=== PATIENT | female | born 1940 | race Caucasian/White ===

== ENCOUNTER 2017-11-20 16:53 | Emergency (ER) | payer OTHER, MEDICARE ==
[~2017-11-20] VITALS: Ht 168.9 cm; Wt 59.9 kg
[2017-11-20 18:37] LABS: ABSOLUTE BASOPHIL COUNT 0 /CUMM (0.0-0.2); ABSOLUTE EOSINOPHIL COUNT 0.1 /CUMM (0.0-0.7); ABSOLUTE GRANULOCYTE CT 3.9 /CUMM (1.4-6.5); ABSOLUTE LYMPH COUNT 1.3 /CUMM (1.2-3.4); ABSOLUTE MONOCYTE COUNT 0.5 /CUMM (0.10-0.60); BASOPHIL % 0 % (0.0-2.0); EOSINOPHIL % 1.4 % (0-5); GRANULOCYTE % 67.2 % (42.2-75.2); HEMATOCRIT 34.2 % (37-47); MEAN CORPUSCULAR HGB 32.9 PG (27.0-31.0); MEAN CORPUSCULAR HGB CONC 34.7 G/DL (33.0-37.0); MEAN CORPUSCULAR VOLUME 94.9 FL (81.0-99.0); MEAN PLATELET VOLUME 8.4 FL (7.4-10.4); PLATELET COUNT 238 /CUMM (130-400); RBC DISTRIBUTION WIDTH 13.3 % (11.5-14.5); WHITE BLOOD CELL COUNT 5.7 /CUMM (4.8-10.8)
--- NOTE | 2017-11-20 20:15 | ED GENERAL ADULT ---
History of Present Illness General Chief Complaint: General Adult Stated Complaint: "DIZZY LIGHT HEADED, DIHAREA, BLURRED VISION" Source: patient, family Exam Limitations: no limitations Vital Signs & Intake/Output Vital Signs & Intake/Output Vital Signs Date Time Temp Pulse Resp B/P B/P Pulse O2 O2 Flow FiO2 Mean Ox Delivery Rate 11/207 98.2 62 18 101/59 98 Room Air 11/20 1740 98.2 79 20 131/74 94 Room Air Allergies Coded Allergies: MDX - Iodine (IODINE) (Intermediate, RASH 11/20/17) MDX - Seafood (SEAFOOD) (Intermediate, RASH 11/20/17) MDX - Fragrance (Fragrance) (Mild, UNKNOWN REACTION TO PERFUME 11/20/17) MDX - Estrogen Class (Estrogen) (UNKNOWN REACTION TO TOPICAL ESTROGEN 11/20/17) MDX - Latex (UNKNOWN 11/20/17) MDX - Montelukast (From Singulair) (UNKNOWN 11/20/17) Reconcile Medications Diphenoxylate HCl/Atropine (Lomotil 2.5-0.025 MG Tablet) 2.5 MG-0.025 MG TABLET 1 TAB PO 4 TIMES/DAY DIARRHEA TWENTY...[id number] Meclizine HCl 25 MG TABLET 1 TAB PO TIDPRN PRN VERTIGO Sulfamethoxazole/Trimethoprim (Bactrim Ds Tablet) 800 MG-160 MG TABLET 1 TAB PO BID INFECION Triage Note: TRIAGE: PT TO ER WITH FAMILY C/C DIZZY, LIGHTHEADED, DIARRHEA AND BLURRED VISION. ONSET FEW WEEKS AGO WITH FEELING UNSTEADY ON HER FEET. STATES BLURRED VISION IS BETTER TODAY THEN YESTERDAY. SAW MD REGARDING SAME AND STATES THEY ADJUSTED HER THYROID MEDICINE ABOUT A MONTH AGO. STATES SYMPTOMS GOT BETTER INITIALLY AND THEN WORSE AGAIN. HAS NOT BEEN BACK TO MD SINCE ADJUSTING MEDICATION, NEXT APPT IS IN DECEMBER. DENIES VOMITING. REPORTS LAST DIARRHEA X 1 YESTERDAY. LAST NORMAL BM COUPLE WEEKS AGO. DENIES URINARY S/S. REPORTS GOOD FLUID INTAKE. Triage Nurses Notes Reviewed? yes Onset: Gradual Duration: week(s):, waxing and waning Injury Environment: home Severity: mild Associated Symptoms: diarrhea, dizziness HPI: 76 yo woman presents with 2 weeks of dizziness and 2-3 episodes of diarrhea. She notes, "When I walk down the lara, I feel dizzy.. like I'm moving." She notes no nausea, vomiting, fever, chills, dysuria, chest pain, shortness of breath. She is otherwise well. Past History Travel History Traveled to [place] past 21 day No Medical History Any Pertinent Medical History? 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 No Review of Systems Review of Systems Constitutional: Denies: see HPI. Physical Exam Physical Exam General Appearance: no apparent distress Comments: Review of Systems - except as otherwise noted in HPI Review of Systems Constitutional:no symptoms. EENTM:no symptoms. Respiratory:no symptoms. Cardiovascular:no symptoms. GI:no symptoms. Genitourinary:no symptoms. Musculoskeletal:no symptoms. Skin:no symptoms. Neurological/Psychological:no symptoms. Hematologic/Endocrine:no symptoms. Immunologic/Allergic:no symptoms. All Other Systems: Reviewed and Negative Physical Exam Physical Exam General Appearance: well developed/nourished, no apparent distress Head: atraumatic, normal appearance Eyes: Bilateral: normal appearance. Ears, Nose, Throat: normal pharynx, normal ENT inspection except for dry mucosal membranes Neck: normal inspection, supple, full range of motion Respiratory: normal breath sounds, chest non-tender, no respiratory distress, quiet respiration, lungs clear Cardiovascular: regular rate/rhythm Gastrointestinal: normal bowel sounds, soft, non-tender, no organomegaly Back: normal inspection, normal range of motion Extremities: normal inspection, normal capillary refill, normal range of motion, no edema Neurologic/Psych: no motor/sensory deficits, awake, alert, oriented x 3, vertigo elicited with modified madeline-hallpike maneuver Skin: intact, normal color, warm/dry Core Measures ACS in differential dx? No CVA/TIA Diagnosis: No Sepsis Present: No Sepsis Focused Exam Completed? No Progress Differential Diagnoses I considered the following diagnoses in my evaluation of the patient: vertigo vs dehydration vs colitis vs infectious gastro vs other. Plan of Care: Orders Procedure Date/time Status Add-on Test (ER Only) 11/20 1953 Active URINALYSIS 11/20 1904 Complete THYROXINE 11/20 1818 Complete THYROID STIMULATING HORMONE 11/20 1749 Complete TROPONIN LEVEL 11/20 1749 Complete LIPASE 11/20 1749 Complete COMPREHENSIVE METABOLIC PANEL 11/20 1749 Complete CBC WITHOUT DIFFERENTIAL 11/20 1749 Complete EKG 11/20 1749 Active Current Medications Sig/Jacoby Start time Last Medication Dose Stop Time Status Admin Trimethoprim/ 1 TAB ONCE ONE 11/20 2329 UNVr Sulfamethoxazole 11/20 233 (Bactrim DS) Laboratory Tests 11/20/172222: Urine Color YEL, Urine Clarity CLEAR, Urine pH 6.5, Ur Specific Rincon 1.010, Urine Protein NEG, Urine Ketones NEG, Urine Nitrite POS H, Urine Bilirubin NEG, Urine Urobilinogen 0.2, Ur Leukocyte Esterase LARGE H, Ur Microscopic SEDIMENT EXAMINED, Urine RBC RARE, Urine WBC 10-15 H, Ur Epithelial Cells FEW, Urine Bacteria PACKD H, Urine Hemoglobin TRACE-INTACT, Urine Glucose NEG 11/20/171818: Anion Gap 10, Estimated GFR 48 L, BUN/Creatinine Ratio 11.8, Glucose 106 H, Calcium 9.4, Total Bilirubin 1.7 H, AST 29, ALT 28, Alkaline Phosphatase 80, Troponin I < 0.01, Total Protein 7.1, Albumin 4.1, Globulin 3.0, Albumin/ Globulin Ratio 1.4, Lipase 72, TSH 25.500 H, Thyroxine (T4) 8.6, CBC w Diff NO MAN DIFF REQ, RBC 3.60 L, MCV 94.9, MCH 32.9 H, MCHC 34.7, RDW 13.3, MPV 8.4, Gran % 67.2, Lymphocytes % 22.9, Monocytes % 8.5, Eosinophils % 1.4, Basophils % 0, Absolute Granulocytes 3.9, Absolute Lymphocytes 1.3, Absolute Monocytes 0.5, Absolute Eosinophils 0.1, Absolute Basophils 0 Diagnostic Imaging: Viewed by Me: CT Scan. Discussed w/RAD: CT Scan. Radiology Impression: PATIENT: PORTER ORTEGA PRESENT AGE: 76 PATIENT ACCOUNT NO: [id number] : 39 LOCATION: ER ORDERING PHYSICIAN: Theodore Bonilla MD SERVICE DATE: 11/20/17 EXAM TYPE: CAT - CT HEAD WO IV CONTRAST EXAMINATION: CT HEAD WITHOUT CONTRAST CLINICAL INFORMATION: Dizziness COMPARISON: None TECHNIQUE: Contiguous axial imaging was performed from the skull base to vertex without intravenous administration of contrast. DLP: 536 mGy-cm FINDINGS: There is no evidence of acute intracranial hemorrhage or territorial infarction. No abnormal mass effect or midline shift is seen. Fraire to white matter differentiation is well preserved. No extra-axial fluid collections are identified. The ventricles are normal in size. There is minimal low-attenuation within the periventricular and subcortical white matter. Bilateral basal ganglia calcifications are noted. The osseous structures and soft tissues are normal. The mastoid air cells and visualized portions of the paranasal sinuses are well aerated. IMPRESSION: No acute intracranial findings. Minimal chronic small vessel change.. DICTATED BY: Ursula Tavarez MD DATE/TIME DICTATED:11/20/172121 CLINICAL SPECIALIST:TAMIR DATE/TIME TRANSCRIBED:11/20/172121 CONFIDENTIAL, DO NOT COPY WITHOUT APPROPRIATE AUTHORIZATION. <Electronically signed in Other Vendor System> SIGNED BY: Ursula Tavarez MD 11/20/172133, PATIENT: PORTER ORTEGA PRESENT AGE: 76 PATIENT ACCOUNT NO: [id number] : 39 LOCATION: [facility] ORDERING PHYSICIAN: Theodore Bonilla MD SERVICE DATE: EXAM TYPE: CAT - CT ABD & PELVIS W/O IV CONTRAS EXAMINATION: CT ABDOMEN AND PELVIS WITHOUT CONTRAST CLINICAL INFORMATION: Severe diarrhea COMPARISON: None TECHNIQUE: Multidetector volumetric imaging was performed from the superior aspect of the liver through the pubic symphysis. Sagittal and coronal reformatted images were obtained on the technologist's workstation. DLP: 233.82 mGy-cm FINDINGS: LUNG BASES: The visualized lung bases are unremarkable. A Bochdalek hernia is present with herniation of a small portion of the liver through the right hemidiaphragm. LIVER, GALLBLADDER, AND BILIARY TREE: The liver is otherwise normal in size, shape, and attenuation. No focal hepatic lesion or biliary ductal dilatation is present. High density material is seen layering in the gallbladder which could represent gallstones. PANCREAS: Unremarkable. SPLEEN : Unremarkable. ADRENAL GLANDS: Unremarkable. KIDNEYS AND URETERS: The kidneys are normal in size, shape, and attenuation. They are nonrotated with the renal pelvis sees facing anteriorly. No hydronephrosis, hydroureter, or calculi seen. No perinephric stranding. BLADDER: Unremarkable. GASTROINTESTINAL TRACT: The small and large bowel are unremarkable. The appendix is not seen but there is no evidence of appendicitis. ABDOMINAL WALL: No significant hernia is appreciated. LYMPH NODES: Normal. VASCULAR: Aortic calcification is present. PELVIC VISCERA: Pessary is present. OSSEOUS STRUCTURES: Exaggerated lumbar kyphosis is present with associated degenerative changes in the spine and grade 1 spondylolisthesis with forward slippage of L4 upon L5 and L5 upon S1. There is a compression fracture of T12 with anterior wedging. A right total hip prosthesis is present. Old healed fractures of the pubic rami are present. IMPRESSION: 1. High density material layering in the gallbladder which could represent gallstones. 2. Bochdalek hernia with herniation of a small portion of the liver through the hemidiaphragm on the right. 3. Degenerative changes in the spine. 4. A pessary is place in the pelvis. 5. A definite cause for the patient's diarrhea has not been found. DICTATED BY: Michael Capps MD DATE/TIME DICTATED:11/20/172116 CLINICAL SPECIALIST:TAMIR DATE/TIME TRANSCRIBED:11/20/172116 CONFIDENTIAL, DO NOT COPY WITHOUT APPROPRIATE AUTHORIZATION. <Electronically signed in Other Vendor System> SIGNED BY: Michael Capps MD 11/20/17 3479 Initial ED EKG: sinus inc rbbb and lafb, no acute changes Departure Departure Disposition: HOME OR SELF CARE Condition: Stable Clinical Impression Primary Impression: Diarrhea Secondary Impressions: Hypothyroidism, Urinary tract infection, Vertigo Referrals: Magdalena ALBA,Partha Sosa (PCP/Family) Departure Forms: Customer Survey General Discharge Information Prescriptions: Current Visit Scripts Meclizine HCl 1 TAB PO TIDPRN PRN VERTIGO #30 TAB Diphenoxylate HCl/Atropine (Lomotil 2.5-0.025 MG Tablet) 1 TAB PO 4 TIMES/DAY #20 TAB TWENTY...[id number] Sulfamethoxazole/Trimethoprim (Bactrim Ds Tablet) 1 TAB PO BID #14 TAB Comments 11/20/17, 23:30... discussed at length with family and patient... she is feeling better after supportive medications... she feels comfortable going home... slightly elevated tsh noted, normal t4... will continue her synthroid at present dose, defer to pmd for management... wrote rx for supportive meds. Critical Care Note Critical Care Note Critical Care Time: non-applicable
--- NOTE | 2017-11-20 21:34 | CT SCAN REPORT ---
EXAMINATION: CT HEAD WITHOUT CONTRAST CLINICAL INFORMATION: Dizziness COMPARISON: None TECHNIQUE: Contiguous axial imaging was performed from the skull base to vertex without intravenous administration of contrast. DLP: 536 mGy-cm FINDINGS: There is no evidence of acute intracranial hemorrhage or territorial infarction. No abnormal mass effect or midline shift is seen. Fraire to white matter differentiation is well preserved. No extra-axial fluid collections are identified. The ventricles are normal in size. There is minimal low-attenuation within the periventricular and subcortical white matter. Bilateral basal ganglia calcifications are noted. The osseous structures and soft tissues are normal. The mastoid air cells and visualized portions of the paranasal sinuses are well aerated. IMPRESSION: No acute intracranial findings. Minimal chronic small vessel change..
--- NOTE | 2017-11-20 22:08 | CT SCAN REPORT ---
EXAMINATION: CT ABDOMEN AND PELVIS WITHOUT CONTRAST CLINICAL INFORMATION: Severe diarrhea COMPARISON: None TECHNIQUE: Multidetector volumetric imaging was performed from the superior aspect of the liver through the pubic symphysis. Sagittal and coronal reformatted images were obtained on the technologist's workstation. DLP: 233.82 mGy-cm FINDINGS: LUNG BASES: The visualized lung bases are unremarkable. A Bochdalek hernia is present with herniation of a small portion of the liver through the right hemidiaphragm. LIVER, GALLBLADDER, AND BILIARY TREE: The liver is otherwise normal in size, shape, and attenuation. No focal hepatic lesion or biliary ductal dilatation is present. High density material is seen layering in the gallbladder which could represent gallstones. PANCREAS: Unremarkable. SPLEEN: Unremarkable. ADRENAL GLANDS: Unremarkable. KIDNEYS AND URETERS: The kidneys are normal in size, shape, and attenuation. They are nonrotated with the renal pelvis sees facing anteriorly. No hydronephrosis, hydroureter, or calculi seen. No perinephric stranding. BLADDER: Unremarkable. GASTROINTESTINAL TRACT: The small and large bowel are unremarkable. The appendix is not seen but there is no evidence of appendicitis. ABDOMINAL WALL: No significant hernia is appreciated. LYMPH NODES: Normal. VASCULAR: Aortic calcification is present. PELVIC VISCERA: Pessary is present. OSSEOUS STRUCTURES: Exaggerated lumbar kyphosis is present with associated degenerative changes in the spine and grade 1 spondylolisthesis with forward slippage of L4 upon L5 and L5 upon S1. There is a compression fracture of T12 with anterior wedging. A right total hip prosthesis is present. Old healed fractures of the pubic rami are present. IMPRESSION: 1. High density material layering in the gallbladder which could represent gallstones. 2. Bochdalek hernia with herniation of a small portion of the liver through the hemidiaphragm on the right. 3. Degenerative changes in the spine. 4. A pessary is place in the pelvis. 5. A definite cause for the patient's diarrhea has not been found.
[2017-11-20] MEDS ORDERED: LOMOTIL 2.5-0.1 EACH PO (23:12)
[2017-11-20] MEDS ORDERED: MECLIZINE HCL25 MG PO (23:12)
[2017-11-20] MEDS ORDERED: BACTRIM DS TAB1 EACH PO (23:28)
[2017-11-20 23:32] VITALS: BP 103/62
== END 2017-11-20 23:57 ==
LOC: ERH 16:53
PROVIDERS: Physician Assistant
DX: N39.0 Urinary tract infection, site not specified (principal); E03.9 Hypothyroidism, unspecified; R42 Dizziness and giddiness; R19.7 Diarrhea, unspecified
CPT/HCPCS: 74176; 81001; 93005; 93010; 96361; 96374; J2405

== ENCOUNTER 2017-12-08 13:42 | Observation (INO) | payer OTHER, MEDICARE ==
[~2017-12-08] VITALS: Ht 167.6 cm; Wt 57.6 kg
[~2017-12-08 13:42] MED LIST: BACTRIM DS TAB1 EACH PO; LEVOTHYROXINE88 MCG PO; LOMOTIL 2.5-0.1 EACH PO; MACRODANTIN100 M1 PO; MECLIZINE HCL25 MG PO; ZOCOR40 M1 PO
--- NOTE | 2017-12-08 14:12 | ED AMS/SEIZURE/WEAK/DIZZY ---
History of Present Illness General Chief Complaint: Syncope and Near-Syncope Stated Complaint: DIZZY/HEADACHE Source: patient, family, old records Exam Limitations: no limitations Vital Signs & Intake/Output Vital Signs & Intake/Output Vital Signs Date Time Temp Pulse Resp B/P B/P Pulse O2 O2 Flow FiO2 Mean Ox Delivery Rate 12/08 1432 Room Air 12/08 1403 98.8 69 20 119/71 97 Room Air Allergies Coded Allergies: iodine (Intermediate, RASH 11/25/17) Estrogens (UNKNOWN 11/25/17) latex (UNKNOWN 11/25/17) montelukast (From SINGULAIR) (UNKNOWN 11/25/17) Uncoded Allergies: SEAFOOD (Intermediate, RASH 11/25/17) FRAGRANCE (Mild, UNKNOWN 11/25/17) Reconcile Medications Levothyroxine Sodium 88 MCG TABLET 1 TAB PO DAILY AC THYROID .. Losartan Potassium (Cozaar) 25 MG TABLET 1 TAB PO DAILY HEART (Reported) . Paroxetine HCl (Paxil) 10 MG TABLET 1 TAB PO DAILY MENTAL HEALTH . Simvastatin (Zocor*) 40 MG TABLET 1 TAB PO DAILY CHOLESTEROL . Triage Note: PT SENT TO ED BY MD [facility]IN[facility] FOR HEAD CT. PT REPORTS SHE HAS BEEN FEELING UNWELL X1 MONTH, WAS SCHEDULED FOR OUTPT CT IN 4 DAYS. +DIZZY, "KEEP FEELING LIKE I'M GOING TO FAINT." DENIES FEVERS, DENIES CP, DENIES SOB. Triage Nurses Notes Reviewed? yes HPI: Patient presents for evaluation of dizziness. Patient states "I'm so dizzy, I can't walk straight. The patient also comments that "the ground isn't steady". She has the feeling that "my head is underwater". Symptoms have been present for about 3 weeks and then to wax and wane in intensity. Overall patient feels that her dizziness is getting worse. She felt like she was going to faint today. She saw her primary care physician in his office today and was referred to the emergency department for a CAT scan. Patient has suffered diarrhea over the past few weeks but that seems to have resolved over the past 48 hours. She denies vertigo, chest pain, dyspnea, abdominal pain, dysuria, fever or cold symptoms. Past History Travel History Traveled to [place] past 21 day No Medical History Any Pertinent Medical History? see below for history Neurological: NONE EENT: NONE Cardiovascular: hypertension, hyperlipidemia, RAPID HR AT TIMES Respiratory: NONE Gastrointestinal: hiatal hernia Hepatic: NONE Renal: NONE Musculoskeletal: osteoarthritis, osteoporosis Psychiatric: NONE Endocrine: hypothyroidism, OVER-ACTIVE THYROID Blood Disorders: NONE Cancer(s): NONE LSW/Reproductive: NONE History of MRSA: No History of VRE: No History of CDIFF: No Surgical History Surgical History: non-contributory Psychosocial History Who do you live with Spouse Services at Home None What is your primary language [place] Tobacco Use: Never used Family History Hx Contributory? No Review of Systems Review of Systems Constitutional: Reports: no symptoms. EENTM: Reports: no symptoms. Respiratory: Reports: no symptoms. Cardiovascular: Reports: no symptoms. GI: Reports: no symptoms. Genitourinary: Reports: no symptoms. Musculoskeletal: Reports: no symptoms. Skin: Reports: no symptoms. Neurological/Psychological: Reports: see HPI. Hematologic/Endocrine: Reports: no symptoms. Immunologic/Allergic: Reports: no symptoms. All Other Systems: Reviewed and Negative Physical Exam Physical Exam General Appearance: See below Comments: Gen.: Well-nourished, well-developed, no acute respiratory distress. Head: Normocephalic, atraumatic. Eyes: Normal inspection bilaterally, PERRLA, EOMI, no nystagmus Ears: Normal inspection bilaterally Nose: Normal inspection Throat/mouth : Moist mucosa Neck: Supple, full range of motion, no goiter, equal carotid pulses, no carotid bruits Heart: Regular rate and rhythm, no murmurs rubs or gallops Lungs: Clear to auscultation bilaterally with normal air entry Chest: Nontender Back: Normal range of motion Abdomen: Soft, nontender, nondistended, normal bowel sounds Extremities: Normal range of motion grossly, equal radial pulses, no cyanosis clubbing or edema Neurologic: Cranial nerves 2 through 12 intact, speech is clear, no dysmetria Skin: warm and dry Psychiatric: Calm, cooperative, no apparent delusions or hallucinations Core Measures ACS in differential dx? No CVA/TIA Diagnosis No Sepsis Present: No Sepsis Focused Exam Completed? No Progress Differential Diagnosis: anemia, dehydration, electrolyte abnormality, CVA Plan of Care: Orders Procedure Date/time Status TSH REFLEX 12/09 0600 Active Saline Lock 12/08 1411 Active MISTAKE 12/08 141 Active Telemetry/Coil Rewind Machine Operator 12/08 141 Active TROPONIN LEVEL 12/08 1411 Complete COMPREHENSIVE METABOLIC PANEL 12/08 1411 Complete CBC WITHOUT DIFFERENTIAL 12/08 1411 Complete EKG 12/08 1344 Active Current Medications Sig/Jacoby Start time Last Medication Dose Stop Time Status Admin Sodium Chloride 1,000 ML ONCE ONE 12/08 1500 AC 12/08 (Normal Saline 0.9%) 12/089 1535 Laboratory Tests 12/08/17 1418: Anion Gap 6, Estimated GFR 54 L, BUN/Creatinine Ratio 11.0, Glucose 90, Calcium 8.5, Total Bilirubin 1.2, AST 26, ALT 31, Alkaline Phosphatase 78, Troponin I < 0.01, Total Protein 6.4, Albumin 3.6, Globulin 2.8, Albumin/Globulin Ratio 1.3, CBC w Diff NO MAN DIFF REQ, RBC 3.40 L, MCV 95.5, MCH 32.3 H, MCHC 33.9, RDW 13.6, MPV 7.3 L, Gran % 71.9, Lymphocytes % 17.8 L, Monocytes % 8.6, Eosinophils % 1.1, Basophils % 0.6, Absolute Granulocytes 3.2, Absolute Lymphocytes 0.8 L, Absolute Monocytes 0.4, Absolute Eosinophils 0, Absolute Basophils 0 Diagnostic Imaging: Discussed w/RAD: CT Scan. Radiology Impression: PATIENT: PORTER ORTEGA PRESENT AGE: 76 PATIENT ACCOUNT NO: [id number] : 39 LOCATION: [facility] ORDERING PHYSICIAN: Manpreet Tesfaye MD SERVICE DATE: 12/08/17-1410 EXAM TYPE : CAT - CT HEAD WO IV CONTRAST EXAMINATION: CT HEAD WITHOUT CONTRAST CLINICAL INFORMATION: Dizziness COMPARISON: 11/20/2017 TECHNIQUE: Contiguous axial imaging was performed from the skull base to vertex without intravenous administration of contrast. DLP: 590.89 mGy-cm FINDINGS: There is no evidence of acute intracranial hemorrhage or territorial infarction. No abnormal mass effect or midline shift is seen. Fraire to white matter differentiation is well preserved. Scattered periventricular white matter hypodensities, a nonspecific finding but most commonly on the basis of chronic small vessel ischemic disease. No extra-axial fluid collections are identified. The ventricles are normal in size. The osseous structures and soft tissues are normal. The mastoid air cells and visualized portions of the paranasal sinuses are well aerated. IMPRESSION: No acute intracranial pathology. Chronic small vessel ischemic disease, unchanged. DICTATED BY: Lisa Yu MD DATE/TIME DICTATED:12/08/171433 DAMPENER:TAMIR DATE/TIME TRANSCRIBED:12/08/171433 CONFIDENTIAL, DO NOT COPY WITHOUT APPROPRIATE AUTHORIZATION. <Electronically signed in Other Vendor System> SIGNED BY: Lisa Yu MD 12/08/17 1440 Initial ED EKG: NSR, rate (63), LAFB Prior EKG: unchanged Departure Departure Disposition: STILL A PATIENT Condition: Stable Clinical Impression Primary Impression: Hyponatremia Secondary Impressions: Dizziness Referrals: Magdalena ALBA,Partha Sosa (PCP/Family) Departure Forms: Customer Survey General Discharge Information Prescriptions: Current Visit Scripts Levothyroxine Sodium 1 TAB PO DAILY AC #30 TAB .. Paroxetine HCl (Paxil) 1 TAB PO DAILY #30 TAB . Simvastatin (Zocor*) 1 TAB PO DAILY #30 TAB . Observation Note Spoke With: Kwadwo Barron MD Place Patient In: Non-ED OBS Care Area Rationale for Observation: My rational for observation is as follows patient is experiencing moderate hyponatremia with symptoms. In fact she states that she has become so dizzy that it is impairing her ability to ambulate. I feel this makes her a poor candidate for outpatient management. She is at high risk of falling with subsequent injury. Given this I feel she requires hospitalization for stabilization of her hyponatremia with normal saline and fluid restriction. Serial sodium determinations should be obtained. Although the patient's sodium losses or likely due to gastrointestinal symptoms, other causes for hyponatremia should be considered. If patient's sodium does not respond to fluid restriction then nephrology consultation and/or endocrinology consultation should be considered..
[2017-12-08] MEDS ORDERED: PAXIL10 M1 PO (14:18)
[2017-12-08 14:38] LABS: ABSOLUTE BASOPHIL COUNT 0 /CUMM (0.0-0.2); ABSOLUTE EOSINOPHIL COUNT 0 /CUMM (0.0-0.7); ABSOLUTE GRANULOCYTE CT 3.2 /CUMM (1.4-6.5); ABSOLUTE LYMPH COUNT 0.8 /CUMM (1.2-3.4); ABSOLUTE MONOCYTE COUNT 0.4 /CUMM (0.10-0.60); BASOPHIL % 0.6 % (0.0-2.0); EOSINOPHIL % 1.1 % (0-5); GRANULOCYTE % 71.9 % (42.2-75.2); HEMATOCRIT 32.5 % (37-47); MEAN CORPUSCULAR HGB 32.3 PG (27.0-31.0); MEAN CORPUSCULAR HGB CONC 33.9 G/DL (33.0-37.0); MEAN CORPUSCULAR VOLUME 95.5 FL (81.0-99.0); MEAN PLATELET VOLUME 7.3 FL (7.4-10.4); PLATELET COUNT 305 /CUMM (130-400); RBC DISTRIBUTION WIDTH 13.6 % (11.5-14.5); WHITE BLOOD CELL COUNT 4.4 /CUMM (4.8-10.8)
--- NOTE | 2017-12-08 14:40 | CT SCAN REPORT ---
EXAMINATION: CT HEAD WITHOUT CONTRAST CLINICAL INFORMATION: Dizziness COMPARISON: 11/20/2017 TECHNIQUE: Contiguous axial imaging was performed from the skull base to vertex without intravenous administration of contrast. DLP: 590.89 mGy-cm FINDINGS: There is no evidence of acute intracranial hemorrhage or territorial infarction. No abnormal mass effect or midline shift is seen. Fraire to white matter differentiation is well preserved. Scattered periventricular white matter hypodensities, a nonspecific finding but most commonly on the basis of chronic small vessel ischemic disease. No extra-axial fluid collections are identified. The ventricles are normal in size. The osseous structures and soft tissues are normal. The mastoid air cells and visualized portions of the paranasal sinuses are well aerated. IMPRESSION: No acute intracranial pathology. Chronic small vessel ischemic disease, unchanged.
--- NOTE | 2017-12-08 17:02 | History & Physical ---
Ankush Benderangelsunitha 12/08/17 1701: General Information and HPI MD Statement: I have seen and personally examined PORTER KHAN and documented this H&P. The patient is a 76 year old F who presented with a patient stated chief complaint of []. Source of Information: patient History of Present Illness: Ms Khan is a 76 year old woman w/ a PMHx of HTN, HLD, Graves disease, previous hospital admissions for evaluation of pre-syncope many years ago came in to the hospital with a chief concern of dizziness a few weeks. Reported to have had ataxia, and imbance issues while walking but no nausea, vomiting, hearing or vision changes. Upon worsening of symptoms, she sought medical attention. She had several episodes of diarrhea until a few days ago after she was treated w/ abx for possible UTI. Reported decreaed po intake, and has been drinking electrolyte drink- gatorade upto 48 oz per day. No fever, or cough. No CP/SOB/ palpitations. No LOC. No previous hisotry of seizures, LOC. No focal neurological symptoms. No tremors, weight loss or weight gain. No brent or brbpr. No recent cardiac work up. Non Smoking, non alcoholic. Family h/o parkinsons disease in father. Allergies/Medications Allergies: Coded Allergies: iodine (Intermediate, RASH 11/25/17) Estrogens (UNKNOWN 11/25/17) latex (UNKNOWN 11/25/17) montelukast (From SINGULAIR) (UNKNOWN 11/25/17) Uncoded Allergies: SEAFOOD (Intermediate, RASH 11/25/17) FRAGRANCE (Mild, UNKNOWN 11/25/17) Home Med list Levothyroxine Sodium 88 MCG TABLET 1 TAB PO DAILY AC THYROID (Reported) Losartan Potassium (Cozaar) 25 MG TABLET 1 TAB PO DAILY HEART (Reported) Paroxetine HCl (Paxil) 10 MG TABLET 1 TAB PO DAILY MENTAL HEALTH (Reported) Simvastatin (Zocor*) 40 MG TABLET 1 TAB PO DAILY CHOLESTEROL (Reported) Past History Travel History Traveled to [place] past 21 day No Medical History Neurological: NONE EENT: NONE Cardiovascular: hypertension, hyperlipidemia, RAPID HR AT TIMES Respiratory: NONE Gastrointestinal: hiatal hernia Hepatic: NONE Renal: NONE Musculoskeletal: osteoarthritis, osteoporosis Psychiatric: NONE Endocrine: hypothyroidism Blood Disorders: NONE Cancer(s): NONE 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 Psychosocial History Services at Home: None Review of Systems Review of Systems Constitutional: Reports: see HPI. Denies: chills, fever. EENTM: Denies: blurred vision, double vision. Cardiovascular: Denies: chest pain, palpitations. Respiratory: Denies: cough, short of breath. GI: Reports: diarrhea. Denies: abdominal pain, melena, nausea. Genitourinary: Denies: dysuria. Musculoskeletal: Denies: back pain. Skin: Denies: change in skin color. Neurological/Psychological: Denies: anxiety. Hematologic/Endocrine: Denies: bruising. Exam & Diagnostic Data Last 24 Hrs of Vital Signs/I&O Vital Signs Date Time Temp Pulse Resp B/P B/P Pulse O2 O2 Flow FiO2 Mean Ox Delivery Rate 12/08 2026 98.1 69 18 106/58 98 Room Air 12/08 1939 97.9 62 20 120/60 100 Room Air 12/08 1849 98.8 80 20 155/85 98 Room Air 12/08 1655 98.8 84 20 140/76 99 Room Air 12/08 1432 Room Air 12/08 1403 98.8 69 20 119/71 97 Room Air Intake & Output 12/08 1600 /02 0800 12/08 0000 Intake Total Output Total Balance Patient 127 lb Weight Weight Reported by Patient Measurement Method Physical Exam General Appearance Alert, Oriented X3, Cooperative, No Acute Distress Skin No Rashes, No Breakdown, No Significant Lesion Skin Temp/Moisture Exam: Warm/Dry Sepsis Skin Exam (color): Normal for Ethnicity HEENT Atraumatic, PERRLA, EOMI, Mucous Membr. moist/pink Neck Supple, No JVD, No thryomegaly, +2 Carotid Pulse wo Bruit Lymphatic Cervical nl Cardiovascular Regular Rate, Normal S1, Normal S2, No Murmurs Lungs Clear to Auscultation, Normal Air Movement Abdomen Normal Bowel Sounds, Soft, No Tenderness, No Hepatospenomegaly Neurological Normal Gait, Normal Speech, Strength at 5/5 X4 Ext, Normal Tone, Sensation Intact, Cranial Nerves 3-12 NL, Reflexes 2+, cerebellar tests negative Extremities No Clubbing, No Cyanosis, No Edema, Normal Pulses, No Tenderness/ Swelling Vascular Pulses Symmetrical Sepsis Peripheral Pulse Location: Dorsalis Pedis Sepsis Peripheral Pulse Exam: Normal Sepsis Cap Refill Exam: <2 Sec Last 24 Hrs of Labs/[place]: Laboratory Tests 12/08/17 2000: Troponin I < 0.01 12/08/17 1900: Sodium Cancelled 12/08/17 1418: Anion Gap 6, Estimated GFR 54 L, BUN/Creatinine Ratio 11.0, Glucose 90, Serum Osmolality 272 L, Calcium 8.5, Total Bilirubin 1.2, AST 26, ALT 31, Alkaline Phosphatase 78, Troponin I < 0.01, Total Protein 6.4, Albumin 3.6, Globulin 2.8, Albumin/Globulin Ratio 1.3, Free T4 0.94, Total T3 0.63 L, TSH &T3 &Free T4 Intrp 28.800 H, CBC w Diff NO MAN DIFF REQ, RBC 3.40 L, MCV 95.5, MCH 32.3 H, MCHC 33.9, RDW 13.6, MPV 7.3 L, Gran % 71.9, Lymphocytes % 17.8 L, Monocytes % 8.6, Eosinophils % 1.1, Basophils % 0.6, Absolute Granulocytes 3.2, Absolute Lymphocytes 0.8 L, Absolute Monocytes 0.4, Absolute Eosinophils 0, Absolute Basophils 0 Assessment/Plan Assessment: Ms Khan is a 76 year old woman w/ a PMHx of HTN, HLD, hypothyroidism, previous hospital admissions for evaluation of pre-syncope came in to the hospital with a chief concern of dizziness a few weeks, likely secondary to hyponatremia. At the time of admission, vitals 98.8, AL 69, RR 20, BP 119/71, 97 RA EKG revealed NSR, LAFB, LAD, q waves in inferior leads ( old). No STTWI. No arrythmias. Pertinent lab findins: WBC 4.4 Hb 11.0 ( baseline 10-11) Platelets 305 Na 128 ( chronic hyponatremia, last Na 130 in 11/23 ). K 4.5 BUN 11 Cr 1.0 AST 26 ALT 31 Alk phos [address] head: No acute intracranial pathology. Chronic small vessel ischemic disease, unchanged. Etiology in her case of dizziness, ataxia could be due to electrolyte abnormalities, but CVA needs to be ruled out. However, cerebellar tests are negative so far; and need to consider further imaging if she continues to have any more symptoms. Etiology of hyponatremia, seems like it is due to a combination of GI losses + tea-toast diet, which should be corrected with caution. She received ivf so far, which need closer attention in the next 12 hrs. Sodium correction w/ NS+water can decrease the ADH secretion which can correct Na, and addition of salt tabs could be considered in the future, if she continues to have persistant hyponatremia ( usually not indicated ). Contribution of increased gatorade use, causing hyponatremia is doubtful. Most important consideration, and common cause is hypothyroidism causing hyponatremia which needs to be evaluated first. Problem list: 1. Hyponatremia, hypovolemic 2. h/o HTN, HLD 3. h/o hypothryoridism 4. Dizziness. 1. Observe on telemetry 2. Urine studies, FeNa, Sr Osm, U Osm, Check electrolytes every 4 hourly. Avoid overcorrection of not more than 8-10 meQ/day. 3. Monitor vitals 4. Fall precautions 5. EKGs, and Trops- serial 6. Orthostatic vitals 7. Check TSHR, that could cause low sodium. 8. Hold paroxetine, given association of increased SIADH or hyponatremia in > 65. It can also cause increased chances of hypotension. Beers criteria ( 2015 ). 9. Cardiology consult with Dr. Burroughs. 10. PT eval. DNR/DNI Heparin sc for DVT PPx As Ranked By This Provider Problem List: 1. Dizziness 2. Hyponatremia 3. Dehydration 4. Hypothyroidism Core Measures/Misc (01/23) Acute Coronary Syndrome ACS Diagnosis: No Congestive Heart Failure Congestive Heart Failure Diagnosis No Cerebrovascular Accident CVA/TIA Diagnosis: No VTE (View Protocol) VTE Risk Factors Acute Medical Illness No Mechanical VTE Prophylaxis d/t N/A MechProphylax Ordered No VTE Pharm Prophylaxis d/t NA PharmProphylax ordered Sepsis (View protocol) Sepsis Present: No If YES complete Sepsis Event Note If YES complete Sepsis Event Note Kwadwo Barron MD 12/08/17 1376: Core Measures/Misc (01/23) Sepsis (View protocol) If YES complete Sepsis Event Note If YES complete Sepsis Event Note Attending MD Review Statement Attending Statement Attending MD Statement: examined this patient, discuss 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 Patient reports that this symptom has been going on for several months however over the past few days symptoms got worse. She does not require any assistive device for ambulation but states that she feels like she is going to fall when ambulated. She denied any episodes of falls. She does admit to some slight dizziness which is unchanged with position changes. He denies any palpitations. She denies any ringing in the ears. She denies any vision impairment. Significantly the history is report of loose frequent stools about a week ago lasting several days. She reports that stools are now beginning to get more formed. Denied any associated abdominal cramping. Denied any associated nausea vomiting. reports that soon after she developed diarrhea he is well developed a bout of diarrhea and was diagnosed with diverticulitis and received antibiotic therapy. She denies any fever or chills. Denies any blood in stools. In the ER head CT was done that showed no acute intracranial pathology. Laboratory data shows sodium of 128. She has been hyponatremic in the past however labs recently have shown sodium levels closer to normal limits. On examination she is an elderly woman not in any acute distress. present at the bedside. She has no nystagmus on examination. Heart sounds are regular. Abdomen is soft and nontender. She has no peripheral edema. Review of records shows that she has a history of "fast heart rate". EKG shows normal sinus rhythm with a left anterior fascicular block. Problems: 1. Worsening unsteady gait. 2. Hyponatremia 3. Hypothyroidism 4. Recent diarrhea Plan: -Place on observation level of care. -In view of the documented history of arrhythmia would recommend monitoring patient on the telemetry unit overnight. Obtain cardiology consultation. -Her worsening symptoms may be related to her electrolyte imbalance. She is receiving normal saline from the emergency room. Recommend repeating sodium level tonight to avoid overcorrection. Calculate free water deficit and replace fluids accordingly. -She will need further workup of her chronic unsteady gait. Recommend physical therapy evaluation in a.m. She has no focal neurologic deficits on examination. - reports that Synthroid dose was changed recently. Check TSH level.
--- NOTE | 2017-12-08 17:06 | PN- Student ---
Subjective Subjective: Intro: Pt is a 76YOF with PMH of HTN, HLD, Graves disease s/p thyroidectomy, and osteoporosis who presented to the ED with 1 mo hx of dizziness that worsened yesterday. HPI: Pt is a 76YOF with PMH of HTN, HLD, Graves disease s/p thyroidectomy, and osteoporosis who presented to the ED with 1 mo hx of dizziness after visiting her PCP morning of admission. For the past month, pt has been experiencing intermittent dizziness on standing and ambulating asso with feelings of unsteady gait and palpitations. She does not use assistance while walking and is independent in ADLs. She denies LOC, extremity pain, weakness, fever. Pt reports that 6wks ago she had a UTI for which she took antibiotics though she doesn't know which one. She got diarrhea which continued until 5-6days ago with 4-5 episodes per day of watery very loose stools without hematochezia or melena. During this time she also had decreased PO intake and 8lb unintended weight loss. Due to this illness patient is feeling depressed and not her normal self. She is unable to do her usual activities, relying more on her for care. Today, pt reports that she no longer feels dizzy on standing and is able to ambulate well. She says the unsteady gait has improved but she still feels a bit off balance. She denies pain in her chest, SOB, palpitations, headache. She reports 2 episodes of watery diarrhea overnight, neg for hematochezia or melena ROS: Gen: no fever, chills Psych: depressed, anxious Neuro: no parasthesias HEENT: no change in vision or hearing, no sore throat or congestion CV: no chest pain, +palpitations Pulm: no dyspnea, no cough Abd: no pain or nausea, +diarrhea Meds: Current Medications Sig/Jacoby Start time Last Medication Dose Stop Time Status Admin Atorvastatin Calcium 20 MG 1700 12/09 1700 AC (Lipitor) Levothyroxine Sodium 0.088 MG DAILY AC 12/09 0700 AC 12/09 (Synthroid) 0711 Losartan Potassium 25 MG DAILY 12/09 0900 AC (Cozaar) Tramadol HCl 50 MG Q8P PRN 12/08 2200 AC (Ultram) Pt recently prescribed paxil but has not yet taken any doses. Losartan is being held at this time d/t hypotension in 80s/60s. Allergies: NKDA PMH: HTN HLD Graves s/p thyroidectomy Osteoporosis w/ chronic pain in back PSurg: R hip replacement 2012 Hiatal hernia repair 2012 thyroidectomy - doesn't know year Fam: Father - Parkinson, of unknown cause at 78yo Mother - healthy, of unknown cause at 78yo Sister - arthritis, spinal stenosis Social: Neg for FAIZAN Pt is to Miguel of 58yrs. They have 3 children and 8 grandchildren. She enjoys gardening and [place]. Pt is independent in ADLs. The diet patient reports is bland and with low sodium plus gatorade while she had diarrhea. Objective Objective: Vital Signs Date Time Temp Pulse Resp B/P B/P Pulse O2 O2 Flow FiO2 Mean Ox Delivery Rate 12/09 0710 98.3 58 16 98/68 99 Room Air 12/09 0120 102/64 12/09 0100 58 82/60 Intake & Output 12/09 1600 12/09 0800 12/09 0000 Intake Total 400 350 Output Total 275 Balance 125 350 Intake, IV 150 Intake, Oral 400 200 Output, Urine 275 Patient 127 lb Weight Tele: SB-NSR with rate of 49-64 with max of 74 PE: Gen - NAD, pink, cooperative Psych - appropriate mood Neuro - AOx4 HEENT - moist mucous membranes, PERRLA CV - RRR no MRG Abd - mild tenderness to palpation in periumbilical area, nondistended Ext - warm and well perfused Results Results: Laboratory Tests Laboratory Tests 12/09 12/09 0615 0110 Chemistry Sodium (137 - 145 mmol/L) 132 L 135 L Potassium (3.5 - 5.1 mmol/L) 4.7 Chloride (98 - 107 mmol/L) 103 Carbon Dioxide (22 - 30 mmol/L) 23 Anion Gap (5 - 16) 6 BUN (7 - 17 mg/dL) 12 Creatinine (0.5 - 1.0 mg/dL) 0.8 Estimated GFR (>60 ml/min) > 60 BUN/Creatinine Ratio (7 - 25 %) 15.0 TSH &T3 &Free T4 Intrp (0.270 - 4.20 uIU/mL) Pending 12/09 12/09 12/08 0100 0100 1999 Chemistry Sodium (137 - 145 mmol/L) 135 L Troponin I (< 0.11 ng/ml) < 0.01 Urines Urine Color (YEL,AMB,STR) STRAW Urine Clarity (CLEAR) CLDY H Urine pH (5.0 - 8.0) 7.0 Ur Specific [place] (1.001 - 1.035) 1.010 Urine Protein (NEG,<30 MG/DL) NEG Urine Ketones (NEG) NEG Urine Nitrite (NEG) POS H Urine Bilirubin (NEG) NEG Urine Urobilinogen (0.1 - 1.0 EU/dl) 0.2 Ur Leukocyte Esterase (NEG) LARGE H Ur Microscopic SEDIMENT EXAMINED Urine RBC (0 - 5 /HPF) 3-5 Urine WBC (0 - 2 /HPF) 50-75 H Ur Epithelial Cells (NONE,FEW) FEW Urine Bacteria (NEG/NONE) MANY H Urine Mucus (FEW,NONE) FEW Urine Hemoglobin (NEG) TRACE-INTACT Urine Osmolality (300 - 1000 MOSM/KG) 253 L Ur Random Creatinine (mg/dL) 38.9 Ur Random Sodium (30 - 90 mmol/L) 86 Ur Random Potassium (mmol/L) 10.6 Fraction Sodium Excret (<1% %) 1.6 H Urine Glucose (N MG/DL) NEG 12/08 12/08 1900 1418 Chemistry Sodium (137 - 145 mmol/L) Cancelled 128 L Potassium (3.5 - 5.1 mmol/L) 4.5 Chloride (98 - 107 mmol/L) 98 Carbon Dioxide (22 - 30 mmol/L) 25 Anion Gap (5 - 16) 6 BUN (7 - 17 mg/dL) 11 Creatinine (0.5 - 1.0 mg/dL) 1.0 Estimated GFR (>60 ml/min) 54 L BUN/Creatinine Ratio (7 - 25 %) 11.0 Glucose (65 - 99 mg/dL) 90 Serum Osmolality (285 - 295 MOSM/KG) 272 L Calcium (8.4 - 10.2 mg/dL) 8.5 Total Bilirubin (0.2 - 1.3 mg/dL) 1.2 AST (14 - 36 U/L) 26 ALT (9 - 52 U/L) 31 Alkaline Phosphatase (<127 U/L) 78 Troponin I (< 0.11 ng/ml) < 0.01 Total Protein (6.3 - 8.2 g/dL) 6.4 Albumin (3.5 - 5.0 g/dL) 3.6 Globulin (1.9 - 4.2 gm/dL) 2.8 Albumin/Globulin Ratio (1.1 - 2.2 %) 1.3 Free T4 (0.78 - 2.44 ng/dL) 0.94 Total T3 (0.97 - 1.69 ng/mL) 0.63 L TSH &T3 &Free T4 Intrp (0.270 - 4.20 uIU/mL) 28.800 H Hematology CBC w Diff NO MAN DIFF REQ WBC (4.8 - 10.8 /CUMM) 4.4 L RBC (4.20 - 5.40 /CUMM) 3.40 L Hgb (12.0 - 16.0 G/DL) 11.0 L Hct (37 - 47 %) 32.5 L MCV (81.0 - 99.0 FL) 95.5 MCH (27.0 - 31.0 PG) 32.3 H MCHC (33.0 - 37.0 G/DL) 33.9 RDW (11.5 - 14.5 %) 13.6 Plt Count (130 - 400 /CUMM) 305 MPV (7.4 - 10.4 FL) 7.3 L Gran % (42.2 - 75.2 %) 71.9 Lymphocytes % (20.5 - 51.1 %) 17.8 L Monocytes % (1.7 - 9.3 %) 8.6 Eosinophils % (0 - 5 %) 1.1 Basophils % (0.0 - 2.0 %) 0.6 Absolute Granulocytes (1.4 - 6.5 /CUMM) 3.2 Absolute Lymphocytes (1.2 - 3.4 /CUMM) 0.8 L Absolute Monocytes (0.10 - 0.60 /CUMM) 0.4 Absolute Eosinophils (0.0 - 0.7 /CUMM) 0 Absolute Basophils (0.0 - 0.2 /CUMM) 0 CT 12/08/17 No intracranial pathology identified. EKG 12/08/17 NSR with LAFB Q wave in inferoseptal leads Assessment/Plan Assessment: Assessment: Pt is a 76YOF with PMH of HTN, HLD, Graves disease s/p thyroidectomy , and osteoporosis who presented to the ED yesterday with 1 mo hx of worsening dizziness after visiting her PCP the morning of admission. For the past month, pt has been experiencing intermittent dizziness on standing and ambulating asso with feelings of unsteady gait and palpitations in the setting of many weeks of diarrhea after abx use for a UTI with 8lb unintentional weight loss. Troponin was neg and EKG showed LAFB and Q waves in inferoseptal leads. CT of the head was neg for intracranial pathology. Hyponatremia was identified at 128, corrected to 135 overnight. TSH is elevated. Problem List/Plan: 1. Dizziness and Ataxia Etiology of dizziness and ataxia is unclear at this point but could be due to hyponatremia found on BEP as a result of either GI loss and poor PO intake. Pt has hx of UTI recently and UA on presentation is found to be LE and nitrite + so this could also be contributing to patient's symptoms, though pt does not have other signs of systemic infection. * Follow serum NA * F/u repeat UA * Up and walking as tolerated * Full diet and encourage PO intake 2. Hypotension Pt was profoundly hypotensive on admission likely due to poor PO intake and GI losses. This was likely contributing to her dizziness and ataxia. Orthostatics are negative overnight and this AM. Her pressures are holding steady in 100s/ 60s. * Continue to follow vitals. * Continue holding losartan. * If pressures are steady by lunch with improved PO intake, continue holding losartan for 3 days and pt can be d/c for outpatient follow up with Dr. Sharif. 3. Diarrhea Pt has been on antibiotics in the last 2 mo for a UTI so diarrhea could be community acquired Cdiff or could be antibiotic associated d/t change in gut raf. Diarrhea of other infectious etiologies is unlikely as pt has no hx of travel or sick contacts. * F/u Cdiff 4. Hypothyroidism Pt is s/p thyroidectomy so hypothyroidism is d/t untertreatment with levothyroxine. Her dose was increased on day of admission by PCP and pt was not adhering well to the med with poor PO intake during the past month. * Continue on new dose of levothyroxine * F/u Dr. Sharif outpatient 5. Hyperlipidemia HLD stable at this time and likely not contributing to this episode. Continue lipitor as per outpatient. Diet: Heart Healthy DVT: Heparin SQ Code: DNR/DNI
[2017-12-08 20:27] VITALS: BP 106/58
[2017-12-09 01:00] VITALS: BP 82/60
[2017-12-09 01:20] VITALS: BP 102/64
[2017-12-09 07:10] VITALS: BP 98/68
--- NOTE | 2017-12-09 07:35 | PN- Housestaff ---
James Stein 12/09/17 0735: Subjective Follow-up For: Dizziness Complaints: pain scale (0-10) (dizziness) Tele-Events Since Last Visit: None Subjective: Bill is a 76 year old woman w/ a PMHx of HTN, HLD, Graves disease, previous hospital admissions for evaluation of pre-syncope many years ago came in to the hospital with a chief concern of dizziness a few weeks. Reported to have had ataxia, and imbance issues while walking but no nausea, vomiting, hearing or vision changes.She had several episodes of diarrhea until a few days ago after she was treated w/ abx for possible UTI. Reported decreaed po intake, and has been drinking electrolyte drink- gatorade upto 48 oz per day. No fever, or cough. No CP/SOB/palpitations. No LOC. No previous hisotry of seizures, LOC. No focal neurological symptoms. No tremors, weight loss or weight gain. No brent or brbpr. Patient feels much better this morning. And wishes to walk around using a walker. No history of burning urination. Her thyroid dose was increased to 88 mcg last night from 75 mcg. Review of Systems Constitutional: Reports: see HPI. Objective Last 24 Hrs of Vital Signs/I&O Vital Signs Date Time Temp Pulse Resp B/P B/P Pulse O2 O2 Flow FiO2 Mean Ox Delivery Rate 12/09 0710 98.3 58 16 98/68 99 Room Air 12/09 0120 102/64 12/09 0100 58 82/60 /7 98.1 69 18 106/58 98 Room Air 12/08 1939 97.9 62 20 120/60 100 Room Air 12/08 1849 98.8 80 20 155/85 98 Room Air 12/08 1655 98.8 84 20 140/76 99 Room Air 12/08 1432 Room Air 12/08 1403 98.8 69 20 119/71 97 Room Air Intake & Output 12/09 1600 12/09 0800 12/09 0000 Intake Total 400 350 Output Total 200 275 Balance -200 125 350 Intake, IV 150 Intake, Oral 400 200 Output, Urine 200 275 Patient 127 lb Weight Physical Exam General Appearance: Alert, Oriented X3, Cooperative, No Acute Distress Cardiovascular: Regular Rate, No Murmurs Lungs: Clear to Auscultation, Normal Air Movement Abdomen: Normal Bowel Sounds, Soft, No Tenderness, No Hepatospenomegaly, No Masses Neurological: Normal Speech, Strength at 5/5 X4 Ext, Normal Tone, Sensation Intact Extremities: No Clubbing, No Cyanosis, No Edema, Normal Pulses, No Tenderness/ Swelling Current Medications: Current Medications Sig/Jacoby Start time Last Medication Dose Route Stop Time Status Admin Acetaminophen 1,000 MG DAILY PRN 12/08 2200 AC IV Acetaminophen 650 MG Q8P PRN 12/08 1830 AC PO Atorvastatin Calcium 20 MG 1700 12/09 1700 AC PO Heparin Sodium 5,000 UNIT Q8 12/08 2200 AC 12/09 (Porcine) SC 0711 Levothyroxine Sodium 0.088 MG DAILY AC 12/09 0700 AC 12/09 PO 0711 Losartan Potassium 25 MG DAILY 12/09 0900 CAN PO Melatonin 5 MG ONCE ONE 12/08 2330 DC 12/08 PO 12/08 2331 2335 Sodium Chloride 1,000 ML ONCE ONE 12/08 1500 DC 12/08 IV 12/08 2139 1535 Tramadol HCl 50 MG Q8P PRN 12/08 2200 AC PO Last 24 Hrs of Lab/Avtar Results Last 24 Hrs of Labs/Mics: Laboratory Tests 12/09/17 0615: Anion Gap 6, Estimated GFR > 60, BUN/Creatinine Ratio 15.0, TSH &T3 &Free T4 Intrp 44.500 H, CBC w Diff NO MAN DIFF REQ, RBC 3.35 L, MCV 95.8, MCH 32.5 H, MCHC 33.9, RDW 13.8, MPV 8.2, Gran % 67.9, Lymphocytes % 18.7 L, Monocytes % 9.5 H, Eosinophils % 3.2, Basophils % 0.7, Absolute Granulocytes 3.1, Absolute Lymphocytes 0.9 L, Absolute Monocytes 0.4, Absolute Eosinophils 0.1, Absolute Basophils 0 12/09/17 0110: 12/09/17 0100: Urine Color STRAW, Urine Clarity CLDY H, Urine pH 7.0, Ur Specific [place] 1.010, Urine Protein NEG, Urine Ketones NEG, Urine Nitrite POS H, Urine Bilirubin NEG, Urine Urobilinogen 0.2, Ur Leukocyte Esterase LARGE H, Ur Microscopic SEDIMENT EXAMINED, Urine RBC 3-5, Urine WBC 50-75 H, Ur Epithelial Cells FEW, Urine Bacteria MANY H, Urine Mucus FEW, Urine Hemoglobin TRACE- INTACT, Urine Glucose NEG 12/09/17 0100: Urine Osmolality 253 L, Ur Random Creatinine 38.9, Ur Random Sodium 86, Ur Random Potassium 10.6, Fraction Sodium Excret 1.6 H 12/08/17 2000: Troponin I < 0.01 12/08/17 1900: Sodium Cancelled 12/08/17 1418: Anion Gap 6, Estimated GFR 54 L, BUN/Creatinine Ratio 11.0, Glucose 90, Serum Osmolality 272 L, Calcium 8.5, Total Bilirubin 1.2, AST 26, ALT 31, Alkaline Phosphatase 78, Troponin I < 0.01, Total Protein 6.4, Albumin 3.6, Globulin 2.8, Albumin/Globulin Ratio 1.3, Free T4 0.94, Total T3 0.63 L, TSH &T3 &Free T4 Intrp 28.800 H, CBC w Diff NO MAN DIFF REQ, RBC 3.40 L, MCV 95.5, MCH 32.3 H, MCHC 33.9, RDW 13.6, MPV 7.3 L, Gran % 71.9, Lymphocytes % 17.8 L, Monocytes % 8.6, Eosinophils % 1.1, Basophils % 0.6, Absolute Granulocytes 3.2, Absolute Lymphocytes 0.8 L, Absolute Monocytes 0.4, Absolute Eosinophils 0, Absolute Basophils 0 Microbiology 12/09 846 URINE ROUT: Urine Culture - COLB 12/10 843 STOOL: Clostridium difficile Toxin A & B - COLB Assessment/Plan Assessment: Ms Khan is a 76 year old woman w/ a PMHx of HTN, HLD, hypothyroidism, previous hospital admissions for evaluation of pre-syncope came in to the hospital with a chief concern of dizziness a few weeks, likely secondary to hyponatremia and volume depletion due to diarrhoea s/p antibiotic therapy for UTI. WBC 4.4 Hb 11.0 ( baseline 10-11) Platelets 305 Na 128 ( chronic hyponatremia, last Na 130 in 11/23 ). K 4.5 BUN 11 Cr 1.0 AST 26 ALT 31 Alk phos 78 Trop 0.01 EKG revealed NSR, LAFB, LAD, q waves in inferior leads CT head: No acute intracranial pathology. Chronic small vessel ischemic disease, unchanged. plan- Stool for C. difficile toxin Hyponatremia and hypotension resolved with fluids Orthostatic hypotension ruled out Continue thyroxine 88 mcg Patient can be discharged and followed up outpatient if blood pressure pressure remains normal Do not take losartan until seen by PCP Follow-up with PCP within 1 week Problem List: 1. Hyponatremia 2. Hypothyroidism Pain Ratin Pain Location: - Pain Goal: Remain pain free (-) Pain Plan: - Tomorrow's Labs & Rationales: none Mary ALBA,Amanda 12/09/17 1049: Attending MD Review Statement Attending Statement Attending MD Statement: examined this patient, discuss w/resident/PA/L[employer] INDUSTRIAL SUPERVISOR, agreed w/resident/PA/LIGHT INDUSTRIAL SUPERVISOR, reviewed EMR data (avail), discussed with nursing, discussed with case mgmt, reviewed images Attending Assessment/Plan: 76-year-old female past medical history of hypertension and hypothyroidism who is here with dizziness. Patient has had an infectious diarrhea like illness with diarrhea multiple times. She attributes this to recent antibiotics for a UTI. When she came in she was afebrile with no white count and C. difficile has been sent. She was hypotensive and hyponatremic and responded well to IV fluids. She is doing well today, normotensive and not orthostatic and feeling well. Will have cardiology see her. If cleared and if her pressure stays stable and C. difficile is negative I think she can leave with outpatient follow -up. Her TSH is high but her dose of levothyroxine was recently increased so we will keep it as such for now.
[2017-12-09 08:02] LABS: ABSOLUTE BASOPHIL COUNT 0 /CUMM (0.0-0.2); ABSOLUTE EOSINOPHIL COUNT 0.1 /CUMM (0.0-0.7); ABSOLUTE GRANULOCYTE CT 3.1 /CUMM (1.4-6.5); ABSOLUTE LYMPH COUNT 0.9 /CUMM (1.2-3.4); ABSOLUTE MONOCYTE COUNT 0.4 /CUMM (0.10-0.60); BASOPHIL % 0.7 % (0.0-2.0); EOSINOPHIL % 3.2 % (0-5); GRANULOCYTE % 67.9 % (42.2-75.2); HEMATOCRIT 32.1 % (37-47); MEAN CORPUSCULAR HGB 32.5 PG (27.0-31.0); MEAN CORPUSCULAR HGB CONC 33.9 G/DL (33.0-37.0); MEAN CORPUSCULAR VOLUME 95.8 FL (81.0-99.0); MEAN PLATELET VOLUME 8.2 FL (7.4-10.4); PLATELET COUNT 311 /CUMM (130-400); RBC DISTRIBUTION WIDTH 13.8 % (11.5-14.5); RED BLOOD CELL CT 3.35 /CUMM (4.20-5.40); WHITE BLOOD CELL COUNT 4.6 /CUMM (4.8-10.8)
--- NOTE | 2017-12-09 11:48 | Cons- Cardiology ---
General Information and HPI Consulting Request Date of Consult: 12/09/17 Requested By: Amanda Hernandez MD Reason for Consult: Bradycardia Source of Information: patient History of Present Illness: This is a pleasant 76-year-old female with a past medical history of hypertension, hyperlipidemia, and hypothyroidism who presented to [facility] with a chief complaint of intermittent lightheadedness; associated with some unsteadiness but no syncopal episodes. No associated chest pain, dyspnea, or palpitations. She recently had multiple episodes of diarrhea. She denies headache, visual changes, speech disturbance, or focal weakness. She did receive IV fluids on presentation and is feeling much better. Her dose of levothyroxine was recently increased for hypothyroidism. Allergies/Medications Allergies: Coded Allergies: iodine (Intermediate, RASH 11/25/17) Estrogens (UNKNOWN 11/25/17) latex (UNKNOWN 11/25/17) montelukast (From SINGULAIR) (UNKNOWN 11/25/17) Uncoded Allergies: SEAFOOD (Intermediate, RASH 11/25/17) FRAGRANCE (Mild, UNKNOWN 11/25/17) Home Med List: Levothyroxine Sodium 88 MCG TABLET 1 TAB PO DAILY AC THYROID (Reported) Losartan Potassium (Cozaar) 25 MG TABLET 1 TAB PO DAILY HEART (Reported) Paroxetine HCl (Paxil) 10 MG TABLET 1 TAB PO DAILY MENTAL HEALTH (Reported) Simvastatin (Zocor*) 40 MG TABLET 1 TAB PO DAILY CHOLESTEROL (Reported) Current Medications: Current Medications Sig/Jacoby Start time Last Medication Dose Route Stop Time Status Admin Acetaminophen 1,000 MG DAILY PRN 12/08 2200 AC IV Acetaminophen 650 MG Q8P PRN 12/08 1830 AC PO Atorvastatin Calcium 20 MG 1700 12/09 1700 AC PO Heparin Sodium 5,000 UNIT Q8 12/08 2200 AC 12/09 (Porcine) SC 0711 Levothyroxine Sodium 0.088 MG DAILY AC 12/09 0700 AC 12/09 PO 0711 Losartan Potassium 25 MG DAILY 12/09 0900 CAN PO Melatonin 5 MG ONCE ONE 12/08 2330 DC 12/08 PO 12/08 2331 2335 Sodium Chloride 1,000 ML ONCE ONE 12/08 1500 DC 12/08 IV 12/08 2139 1535 Tramadol HCl 50 MG Q8P PRN 12/08 2200 AC PO Review of Systems Review of Systems: Review of systems as per HPI. The remainder of a 10 point review of systems was reviewed and was otherwise negative. Past History Travel History Traveled to [place] past 21 day No Medical History Blood Transfusion Hx: No Neurological: NONE EENT: NONE Cardiovascular: hypertension, hyperlipidemia, RAPID HR AT TIMES Respiratory: NONE Gastrointestinal: hiatal hernia Hepatic: NONE Renal: NONE Musculoskeletal: osteoarthritis, osteoporosis Psychiatric: NONE Endocrine: hypothyroidism Blood Disorders: NONE Cancer(s): NONE PHARMACEUTICAL SPECIALTY REPRESENTATIVE/Reproductive: NONE Surgical History Surgical History: non-contributory Family History Relations & Conditions If Any: FATHER (parkinsons disease). Psychosocial History Services at Home: None Smoking Status: Never Smoked Exam & Diagnostic Data Vital Signs and I&O Vital Signs Date Time Temp Pulse Resp B/P B/P Pulse O2 O2 Flow FiO2 Mean Ox Delivery Rate 12/09 0710 98.3 58 16 98/68 99 Room Air 12/09 0120 102/64 12/09 0100 58 82/60 / 2027 98.1 69 18 106/58 98 Room Air 12/08 1939 97.9 62 20 120/60 100 Room Air 12/08 1849 98.8 80 20 155/85 98 Room Air 12/08 1655 98.8 84 20 140/76 99 Room Air 12/08 1432 Room Air 12/08 1403 98.8 69 20 119/71 97 Room Air Intake & Output 12/09 1600 12/09 0800 12/09 0000 12/08 1600 12/08 0800 / 0000 Intake Total 400 350 Output Total 200 275 Balance -200 125 350 Intake, IV 150 Intake, Oral 400 200 Output, Urine 200 275 Patient 127 lb 127 lb Weight Weight Reported by Patient Measurement Method Physical Exam: General: no apparent distress. Alert. Eyes: No obvious scleral icterus. HEENT: No jugular venous distention or abnormal jugular venous pulsations. Cardiovascular: Normal intensity S1/S2. PMI not grossly displaced. Respiratory: Lungs clear to auscultation bilaterally. Abdomen: Soft, nontender with no guarding or rebound tenderness. Musculoskeletal: No clubbing or cyanosis noted Skin: warm Neurologic: No gross focal deficits noted. Labs/Avtar Results: Laboratory Tests 12/09 12/09 0615 0110 Chemistry Sodium (137 - 145 mmol/L) 132 L 135 L Potassium (3.5 - 5.1 mmol/L) 4.7 Chloride (98 - 107 mmol/L) 103 Carbon Dioxide (22 - 30 mmol/L) 23 Anion Gap (5 - 16) 6 BUN (7 - 17 mg/dL) 12 Creatinine (0.5 - 1.0 mg/dL) 0.8 Estimated GFR (>60 ml/min) > 60 BUN/Creatinine Ratio (7 - 25 %) 15.0 TSH &T3 &Free T4 Intrp (0.270 - 4.20 uIU/mL) 44.500 H Hematology CBC w Diff NO MAN DIFF REQ WBC (4.8 - 10.8 /CUMM) 4.6 L RBC (4.20 - 5.40 /CUMM) 3.35 L Hgb (12.0 - 16.0 G/DL) 10.9 L Hct (37 - 47 %) 32.1 L MCV (81.0 - 99.0 FL) 95.8 MCH (27.0 - 31.0 PG) 32.5 H MCHC (33.0 - 37.0 G/DL) 33.9 RDW (11.5 - 14.5 %) 13.8 Plt Count (130 - 400 /CUMM) 311 MPV (7.4 - 10.4 FL) 8.2 Gran % (42.2 - 75.2 %) 67.9 Lymphocytes % (20.5 - 51.1 %) 18.7 L Monocytes % (1.7 - 9.3 %) 9.5 H Eosinophils % (0 - 5 %) 3.2 Basophils % (0.0 - 2.0 %) 0.7 Absolute Granulocytes (1.4 - 6.5 /CUMM) 3.1 Absolute Lymphocytes (1.2 - 3.4 /CUMM) 0.9 L Absolute Monocytes (0.10 - 0.60 /CUMM) 0.4 Absolute Eosinophils (0.0 - 0.7 /CUMM) 0.1 Absolute Basophils (0.0 - 0.2 /CUMM) 0 12/09 12/09 12/08 0100 0100 1999 Chemistry Sodium (137 - 145 mmol/L) 135 L Troponin I (< 0.11 ng/ml) < 0.01 Urines Urine Color (YEL,AMB,STR) STRAW Urine Clarity (CLEAR) CLDY H Urine pH (5.0 - 8.0) 7.0 Ur Specific [place] (1.001 - 1.035) 1.010 Urine Protein (NEG,<30 MG/DL) NEG Urine Ketones (NEG) NEG Urine Nitrite (NEG) POS H Urine Bilirubin (NEG) NEG Urine Urobilinogen (0.1 - 1.0 EU/dl) 0.2 Ur Leukocyte Esterase (NEG) LARGE H Ur Microscopic SEDIMENT EXAMINED Urine RBC (0 - 5 /HPF) 3-5 Urine WBC (0 - 2 /HPF) 50-75 H Ur Epithelial Cells (NONE,FEW) FEW Urine Bacteria (NEG/NONE) MANY H Urine Mucus (FEW,NONE) FEW Urine Hemoglobin (NEG) TRACE-INTACT Urine Osmolality (300 - 1000 MOSM/KG) 253 L Ur Random Creatinine (mg/dL) 38.9 Ur Random Sodium (30 - 90 mmol/L) 86 Ur Random Potassium (mmol/L) 10.6 Fraction Sodium Excret (<1% %) 1.6 H Urine Glucose (N MG/DL) NEG 12/08 12/08 1900 1418 Chemistry Sodium (137 - 145 mmol/L) Cancelled 128 L Potassium (3.5 - 5.1 mmol/L) 4.5 Chloride (98 - 107 mmol/L) 98 Carbon Dioxide (22 - 30 mmol/L) 25 Anion Gap (5 - 16) 6 BUN (7 - 17 mg/dL) 11 Creatinine (0.5 - 1.0 mg/dL) 1.0 Estimated GFR (>60 ml/min) 54 L BUN/Creatinine Ratio (7 - 25 %) 11.0 Glucose (65 - 99 mg/dL) 90 Serum Osmolality (285 - 295 MOSM/KG) 272 L Calcium (8.4 - 10.2 mg/dL) 8.5 Total Bilirubin (0.2 - 1.3 mg/dL) 1.2 AST (14 - 36 U/L) 26 ALT (9 - 52 U/L) 31 Alkaline Phosphatase (<127 U/L) 78 Troponin I (< 0.11 ng/ml) < 0.01 Total Protein (6.3 - 8.2 g/dL) 6.4 Albumin (3.5 - 5.0 g/dL) 3.6 Globulin (1.9 - 4.2 gm/dL) 2.8 Albumin/Globulin Ratio (1.1 - 2.2 %) 1.3 Free T4 (0.78 - 2.44 ng/dL) 0.94 Total T3 (0.97 - 1.69 ng/mL) 0.63 L TSH &T3 &Free T4 Intrp (0.270 - 4.20 uIU/mL) 28.800 H Hematology CBC w Diff NO MAN DIFF REQ WBC (4.8 - 10.8 /CUMM) 4.4 L RBC (4.20 - 5.40 /CUMM) 3.40 L Hgb (12.0 - 16.0 G/DL) 11.0 L Hct (37 - 47 %) 32.5 L MCV (81.0 - 99.0 FL) 95.5 MCH (27.0 - 31.0 PG) 32.3 H MCHC (33.0 - 37.0 G/DL) 33.9 RDW (11.5 - 14.5 %) 13.6 Plt Count (130 - 400 /CUMM) 305 MPV (7.4 - 10.4 FL) 7.3 L Gran % (42.2 - 75.2 %) 71.9 Lymphocytes % (20.5 - 51.1 %) 17.8 L Monocytes % (1.7 - 9.3 %) 8.6 Eosinophils % (0 - 5 %) 1.1 Basophils % (0.0 - 2.0 %) 0.6 Absolute Granulocytes (1.4 - 6.5 /CUMM) 3.2 Absolute Lymphocytes (1.2 - 3.4 /CUMM) 0.8 L Absolute Monocytes (0.10 - 0.60 /CUMM) 0.4 Absolute Eosinophils (0.0 - 0.7 /CUMM) 0 Absolute Basophils (0.0 - 0.2 /CUMM) 0 Diagnostic Data EKG Results Tracing was personally reviewed and shows sinus rhythm at 63 bpm with left axis deviation and borderline R-wave progression. Other Results Head Ct No acute intracranial pathology. Chronic small vessel ischemic disease, unchanged. Assessment/Plan Assessment/Plan 1. Dizziness with recent diarrhea; improved with IV fluids 2. Mild sinus bradycardia 3. History of hypertension 4. History of hyperlipidemia 5. History of hypothyroidism Patient's intermittent dizziness seems to have improved with IV fluids. CT scan showed no evidence of acute event. She does have some mild sinus bradycardia which may be due to hypothyroidism; her levothyroxine dose was recently increased. No additional inpatient cardiac testing is required at this time. If she has any continued symptoms in the future she can see me in the office for outpatient cardiac workup. Chucky Contreras MD FACC Consult Acknowledgment - Thank you for your consult request.
--- NOTE | 2017-12-09 13:18 | Patient Discharge Instructions ---
Discharge Instructions General Discharge Information You were seen/treated for: syncope Watch for these problems: dizziness Special Instructions: Dont take LOSARTAN until seen by PCP - Follow up with PCP within 1 week Diet Continue normal diet: Yes Recommended Diet: Regular Activity Full Activity/No Limits: Yes Acute Coronary Syndrome Inclusion Criteria At DC or during hospital stay patient has or had the following: ACS DIAGNOSIS No Discharge Core Measures Meds if any: Prescribed or Continued at Discharge Meds if any: NOT Prescribed or Continued at Discharge Congestive Heart Failure Inclusion Criteria At DC or during hospital stay patient has or had the following: CHF DIAGNOSIS No Discharge Core Measures Meds if any: Prescribed or Continued at Discharge Meds if any: NOT Prescribed or Continued at Discharge Cerebrovascular accident Inclusion Criteria At DC or during hospital stay patient has or had the following: CVA/TIA Diagnosis No Discharge Core Measures Meds if any: Prescribed or Continued at Discharge Meds if any: NOT Prescribed or Continued at Discharge Venous thromboembolism Inclusion Criteria VTE Diagnosis No VTE Type NONE VTE Confirmed by (Test) NONE Discharge Core Measures - Per Current guidelines, there needs to be overlap - treatment for the first 5 days of Warfarin therapy. - If discharged on Warfarin prior to 5 days of - overlap therapy, the patient will need to be - assessed for post discharge needs including - *Post discharge parental anticoagulation - *Warfarin and/or parental anticoagulation education - *Follow up date to check INR post discharge At least 5 days overlap therapy as Inpatient No Meds if any: Prescribed or Continued at Discharge Note: Overlap Therapy is Warfarin and Anticoagulant Meds if any: NOT Prescribed or Continued at Discharge
[2017-12-09 14:04] VITALS: BP 100/56
[2017-12-10] MEDS ORDERED: COZAAR25 M1 PO (09:33)
[2017-12-10] MEDS ORDERED: ZOCOR40 M1 PO (09:43)
[2017-12-10] MEDS ORDERED: LEVOTHYROXINE88 MCG PO (09:43)
[2017-12-10] MEDS ORDERED: PAXIL10 M1 PO (09:43)
== END 2017-12-09 17:25 ==
LOC: ERH 13:42 → 1NO 16:47 → ERHI 16:47 → ENRESERV 19:43 → ENTRNSPT 19:44 → EDTRNSPTSTS 19:58 → 1NO 20:10 → CMPTRNSPT 20:21 → 1NO 12-09 07:11 → ENPENDDIS 12-09 13:16 → 1NO 12-09 17:25
PROVIDERS: Emergency Medicine; Internal Medicine Endocrinology, Diabetes & Metabolism
DX: E87.1 Hypo-osmolality and hyponatremia (principal); E86.0 Dehydration; E03.9 Hypothyroidism, unspecified; I10 Essential (primary) hypertension; E78.5 Hyperlipidemia, unspecified; R42 Dizziness and giddiness; R26.81 Unsteadiness on feet; A08.8 Other specified intestinal infections
CPT/HCPCS: 6020; 84133; 84300; 36592; 81001; 82436; 82570; 87086; 93005; 93010; 96372; 97116-GP; 97161-GP; G0378; G8978-GP; G8979-GP; G8980-GP; J1644